=== PATIENT | male | born 1955 | race Caucasian/White ===

== ENCOUNTER → 2019-03-22 11:51 | Outpatient (CLI) | payer OTHER, MEDICAID, SELFPAY ==
[2019-03-22 13:11] LABS: Alanine Aminotransferase 75 IU/L (21-72); Albumin 3.9 g/dL (3.5-5.0); Albumin Globulin Ratio 1.2 (1.0-2.8); Alkaline Phosphatase 98 U/L (38-126); Aspartate Aminotransferase 83 IU/L (17-59); Bilirubin Total 0.8 mg/dL (0.2-1.3); Blood Urea Nitrogen 12 mg/dL (9-20); Calcium 9.2 mg/dL (8.4-10.2); Carbon Dioxide 24 mmol/L (22-32); Chloride 105 mmol/L (98-107); Creatine Kinase 79 U/L (55-170); Estimated Glomerular Filt Rate > 60.0 mL/min (>60); Globulin 3.3 g/dL (1.7-4.1); Glucose 133 mg/dL (80-110); HEMOLYSIS < 15 (0-50); Potassium 4.1 mmol/L (3.4-5.1); Sodium 139 mmol/L (137-145); Total Protein 7.2 g/dL (6.3-8.2)
== END ==
PROVIDERS: PCP Internal Medicine; Visit Provider Internal Medicine
DX: C10.9 Malignant neoplasm of oropharynx, unspecified (principal); G89.4 Chronic pain syndrome; I73.9 Peripheral vascular disease, unspecified
CPT/HCPCS: 36415; 80053; 82550

== ENCOUNTER → 2020-01-24 13:26 | Outpatient (CLI) | payer OTHER, MEDICAID, SELFPAY ==
--- NOTE | 2020-01-24 13:27 | DI.ECHO.S_ITS ---
[facility] +---------+ : : [address] : [place] : : : : [id number] : : : : Phone: [phone]---------+ Echocardiogram Report + + :Name: SHAHNAZ TROTTER Study Date: 01/24/2020 Height: 66 in : :[facility] Weight: 120 lb : : Gender: Male BSA: 1.6 m2 : :: 1955 Age: 64 yrs BP: 118/65 mmHg: :Reason For Study: NSTEMI : : Performed By: Christopher Smith : :Referring: TITO QUINTEROS R : + + Interpretation Summary The left ventricle is normal in size. Left ventricular systolic function is normal without focal wall motion abnormalities. The ejection fraction is estimated to be 60-65%. Diastolic parameters suggest a relaxation abnormality of the left ventricle, consistent with probable normal filling pressures. The right ventricle is normal size. Right ventricular systolic function is at the lower limits of normal. Pulmonary artery pressures cannot be estimated because of the lack of a measurable TR jet velocity. Both atria are normal in size. There is no significant valvular heart disease. The aortic root is normal size. Procedure: A two-dimensional transthoracic echocardiogram with color flow and Doppler was performed. The study quality was technically good. There is no prior echocardiogram noted for this patient. The patient was in normal sinus rhythm during the exam. Left Ventricle: The left ventricle is normal in size. There is normal left ventricular wall thickness. Left ventricular systolic function is normal without focal wall motion abnormalities. The ejection fraction is estimated to be 60-65%. Diastolic parameters suggest a relaxation abnormality of the left ventricle, consistent with probable normal filling pressures. Right Ventricle: The right ventricle is normal size. Right ventricular systolic function is at the lower limits of normal. Atria: Both atria are normal in size. The interatrial septum is intact with no evidence for an atrial septal defect. Mitral Valve: The mitral valve is normal in structure and function. There is no mitral regurgitation noted. Aortic Valve: The aortic valve is trileaflet. The aortic valve opens well. No aortic regurgitation is present. Tricuspid Valve: The tricuspid valve is normal in structure and function. No tricuspid regurgitation. Pulmonary artery pressures cannot be estimated because of the lack of a measurable TR jet velocity. Pulmonic Valve: The pulmonic valve is normal in structure and function. There is trace pulmonic regurgitation. There is no significant valvular heart disease. Great Vessels: The aortic root is normal size. The dimensions of the ascending aorta are normal. The pulmonary artery is normal size. The IVC is of normal diameter and collapses greater than 50% with a sniff. This suggests a low right atrial pressure of 3 mm Hg. Pericardium/ Pleura There is no pericardial effusion. There is no pleural effusion. MMode/2D Measurements & Calculations LVIDd: 4.3 cm LVOT diam: 2.0 cm LVIDs: 2.8 cm Ao root diam: 3.1 cm FS: 35.3 % asc Aorta Diam: 3.2 cm EPSS: 0.67 cm IVSd: 0.84 cm LVPWd: 0.70 cm LV thomas. diameter/BSA (cm/m^2): 2.7 LV sys. diameter/BSA (cm/m^2): 1.7 LA dimension: 2.4 cm RA long axis: 3.9 cm LA A2 area: 12.7 cm2 RA area: 9.3 cm2 LA A4 area: 13.5 cm2 RA vol: 19.0 ml LA length (vol): 5.0 cm RA : 11.8 ml/m2 LA vol: 29.1 ml IVC diam: 1.1 cm LA vol index: 18.1 ml/m2 TAPSE: 1.5 cm Doppler Measurements & Calculations Ao V2 max: 134.6 cm/sec LVOT Max Denny: 90.6 cm/sec Ao V2 mean: 99.2 cm/sec LV V1 max P.3 mmHg Ao max P.2 mmHg LV V1 VTI: 16.6 cm Ao mean P.3 mmHg LEANA(I,D): 2.4 cm2 Ao V2 VTI: 22.3 cm LEANA(V,D): 2.2 cm2 sev ratio: 0.75 LEANA indexed to BSA (cm^2/m^2): 1.5 MV E max denny: 50.3 cm/sec PA V2 max: 81.0 cm/sec MV A max denny: 57.9 cm/sec PA V2 mean: 61.5 cm/sec MV E/A: 0.87 PA mean P.6 mmHg Med Peak E' Denny: 3.8 cm/sec PA pr(Accel): 22.5 mmHg E/E' med: 13.3 Lat Peak E' Denny: 6.0 cm/sec E/E' lat: 8.4 E/e' average: 10.8 MV dec time: 0.26 sec SV(LVOT): 53.7 ml Reading Physician:06:03 PM
== END ==
PROVIDERS: PCP Internal Medicine; Referring Provider Internal Medicine; Visit Provider Internal Medicine
DX: I21.4 Non-ST elevation (NSTEMI) myocardial infarction (principal); I73.9 Peripheral vascular disease, unspecified
CPT/HCPCS: 93306

== ENCOUNTER → 2020-01-27 13:45 | Outpatient (CLI) | payer OTHER, MEDICAID, SELFPAY ==
[2020-01-27 14:33] LABS: Add Manual Diff / Slide Review NO; Basophils Absolute Auto 0 /uL (0-100); Basophils Percent Auto 0.8 % (0-2); Eosinophils Absolute Auto 100 /uL (0-450); Eosinophils Percent Auto 3.9 % (2-4); Hematocrit 41.3 % (41-53); Hemoglobin 13.5 g/dL (13.5-17.5); Lymphocytes Absolute Auto 1600 /uL (1100-4500); Lymphocytes Percent Auto 45.6 % (25-40); Mean Corpuscular HGB Conc 32.8 % (30-36); Mean Corpuscular Hemoglobin 32.2 PG (26-34); Mean Corpuscular Volume 98.4 fL (80-100); Monocytes Absolute Auto 400 /uL (0-900); Monocytes Percent Auto 11.2 % (3-14); Neutrophils Absolute Auto 1400 /uL (1500-7000); Neutrophils Percent Auto 38.5 % (50-75); Platelet Count 102 X10^3/uL (150-400); Red Cell Distribution Width 16.4 % (11.6-14.8); White Blood Cell Count 3.5 X10^3/uL (4.5-11.0)
[2020-01-27 14:48] LABS: Erythrocyte Sedimentation Rate 4 MM/HR (0-15)
[2020-01-27 15:15] LABS: Alanine Aminotransferase 49 IU/L (<50); Albumin 3.5 g/dL (3.5-5.0); Albumin Globulin Ratio 1.1 (1.0-2.8); Alkaline Phosphatase 133 U/L (38-126); Aspartate Aminotransferase 82 IU/L (17-59); BUN Creatinine Ratio 18.2 (6-22); Bilirubin Total 0.5 mg/dL (0.2-1.3); Blood Urea Nitrogen 14 mg/dL (9-20); C-Reactive Protein Quant 0.9 mg/dL (<1.0); Calcium 8.8 mg/dL (8.4-10.2); Carbon Dioxide 25 mmol/L (22-32); Chloride 106 mmol/L (98-107); Estimated Glomerular Filt Rate > 60.0 mL/min (>60); Globulin 3.2 g/dL (1.7-4.1); Glucose 91 mg/dL (80-110); HEMOLYSIS < 15 (0-50); Potassium 4.4 mmol/L (3.4-5.1); Sodium 137 mmol/L (137-145); Total Protein 6.7 g/dL (6.3-8.2)
[2020-01-27 15:23] LABS: Free T4, Direct Thyroxine 2.46 ng/dL (0.78-2.19)
[2020-01-27 15:37] LABS: Thyroid Stimulating Hormone 2.13 uIU/mL (0.47-4.68)
== END ==
PROVIDERS: PCP Internal Medicine; Referring Provider Internal Medicine; Visit Provider Internal Medicine
DX: B18.2 Chronic viral hepatitis C (principal); C10.9 Malignant neoplasm of oropharynx, unspecified; D64.9 Anemia, unspecified; G89.4 Chronic pain syndrome; I73.9 Peripheral vascular disease, unspecified
CPT/HCPCS: 36415; 80053; 84439; 84443; 85025; 85651; 86140

== ENCOUNTER 2020-12-22 12:59 | Observation (INO) | payer OTHER, MEDICAID, SELFPAY ==
[2020-12-22] VITALS (55 sets, daily range): BP systolic 105–196; BP diastolic 59–123; PULSE 49–75; RESP 13–46; TEMP 36.3–37; O2SAT 86–100; BMI 17.9
[2020-12-22] MEDS: SODIUM CHLORIDE 0.9% 1,000 ML 1000 ML IV (13:10)
--- NOTE | 2020-12-22 13:12 | ED.AMS ---
HPI - Altered Mental Status General Chief Complaint: Unresponsive Stated Complaint: unresponsive Time Seen by Provider: 12/22/20 13:10 Source: EMS and other ([place].) Mode of arrival: EMS Limitations: altered mental status History of Present Illness HPI narrative: This is a 65-year-old male who comes to the emergency department with decreased level of responsiveness. EMS was contacted by the wrist for welfare check as patient was sitting in his car. When EMS arrived he was only responsive to aggressive sternal rub. Patient did receive 0.2 of Narcan intranasally which did improve his mentation somewhat. Initial pressure was in the 60s, patient's heart rate was also low. Patient did have some improvement in his pressure was in the 80s but time he arrived here in the department. Patient is able to relate his name although he is quite slurred, he asked for his daughter. Patient is not able to give much more information at this time. Reported history of some kind of lymphoma or cancer, that he is on multiple narcotics for pain management as well as COPD. Throughout the course of patient's stay he does not endorse any attempt to harm himself. He cannot answer his code status. Related Data Home Medications Medication Instructions Recorded Confirmed nitroglycerin 0.4 mg sublingual 0.4 mg SL Q5M PRN 11/13/17 12/07/20 tablet Previous Rx's Medication Instructions Recorded Disabled Parking #1 each 01/26/18 amitriptyline 25 mg tablet See Rx Instructions .ROUTE 06/19/20 .COMPLEX #90 tablet fluticasone propionate 220 2 puff INHALATION BID #12 gram 06/19/20 mcg/actuation HFA aerosol inhaler (Flovent HFA) ofloxacin 0.3 % ear drops 5 drp EAR-RIGHT BID #5 ml 09/08/20 albuterol sulfate 90 mcg/actuation 2 puff INHALATION QID #18 gram 11/03/20 aerosol inhaler (Ventolin HFA) atorvastatin 40 mg tablet 40 mg PO DAILY #90 tab 11/03/20 clopidogrel 75 mg tablet 75 mg PO DAILY #90 tab 11/03/20 cyclobenzaprine 10 mg tablet 10 mg PO TID PRN #90 tab 11/03/20 diphenhydramine HCl 50 mg capsule 50 mg PO Q6HP PRN #90 cap 11/03/20 docusate sodium 100 mg capsule 100 mg PO BID #180 cap 11/03/20 epinephrine 0.3 mg/0.3 mL 0.3 mg IM .COMPLEX #2 each 11/03/20 injection, auto-injector (EpiPen 2-Kristian) famotidine 40 mg tablet 40 mg PO DAILY #90 tab 11/03/20 levothyroxine 100 mcg tablet 100 mcg PO DAILY #90 tab 11/03/20 lidocaine 5 % topical ointment See Rx Instructions TOPICAL TID 11/03/20 PRN #120 gram mecobalamin (vitamin B12) 1,000 1,000 mcg PO DAILY #90 tab 11/03/20 mcg chewable tablet ondansetron 8 mg disintegrating See Rx Instructions .ROUTE 11/03/20 tablet .COMPLEX #24 tab tiotropium bromide 18 mcg capsule See Rx Instructions .ROUTE 11/03/20 with inhalation device (Spiriva .COMPLEX #30 capsule with HandiHaler) triamcinolone acetonide 0.1 % 1 applic TOP QID #80 gram 11/03/20 topical cream lorazepam 1 mg tablet (Ativan) 1 mg PO Q4HP PRN #60 tab 12/02/20 morphine 30 mg immediate release 30 - 60 mg PO Q4H PRN #180 tab 12/02/20 tablet morphine 30 mg tablet,extended 30 mg PO TID #90 tab 12/02/20 release oxycodone-acetaminophen 7.5 mg-325 1 tab PO Q4HP PRN #180 tab 12/02/20 mg tablet Allergies Allergy/AdvReac Type Severity Reaction Status Date / Time codeine Allergy Mild Verified 12/22/20 14:27 levofloxacin Allergy Mild Verified 12/22/20 14:27 aspirin AdvReac Mild Verified 12/22/20 14:27 Review of Systems Review of Systems ROS Unobtainable: Unobtainable due to mental status/LOC Patient History Medical History Anemia (02/09/11) Aortoiliac obstruction Cervical spine disease Chronic hepatitis C virus infection (02/09/11) Chronic obstructive pulmonary disease (02/09/11) Dorsalgia (08/14/03) History of adenomatous polyp of colon (02/09/11) Neck pain (02/09/11) Paroxysmal atrial fibrillation (~12/2019) Recurrent major depressive disorder, in full remission (02/09/11) 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) Uncomplicated opioid dependence Vascular claudication Surgical History History of knee replacement S/P vascular bypass (~12/2017) Status post tonsillectomy and adenoidectomy Family History Father Family hx of lung cancer Social History marital status: unmarried,single number of children: 3 household members: none lives independently: Yes caregiver/support person: Yes (Sometimes.) housing: other (Trailer) pets and animals: Yes education level: other (GED) occupational status: disabled current occupational exposures/hazards: No 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 Patient is responsive to verbal stimuli but very confused. His speech is slurred. Patient asks for his daughter. He can tell me his name, he does not know what facility he is at or how he arrived. Patient appears agitated. HEAD: No evidence of trauma, no raccoon/Paiz sign. NECK: Nontender, trachea midline EYES: PERRLA, EOMI ENT: External inspection normal, trachea is midline, TM's are normal no hemotypanum, Nares are clear, no septal hematoma, no dental or oral injury, airway is normal and with normal occlusion, No bony tenderness RESP: Chest is nontender and has symmetric movement, no ecchymosis, breath sounds are normal no crackles, wheezes or rales CVS: Heart sounds are normal, no murmur noted, No JVD. ABG/GI: Nontender, soft, normal bowel sounds, no distention, no organomegaly, pelvic rock is negative NEURO: Neuro is grossly intact, sensation and motor is normal all 4 extremities moving, cranial nerves II through XII are intact, GCS is 10 initially, improved to 11 shortly after arrival. PSYCH: Normal mood and affect SKIN: Intact, warm and dry, no crepitus and without decubitus BACK: No CVA tenderness, no vertebral tenderness, no step-off's, no crepitus EXT: Atraumatic, hips are nontender, no pedal edema, normal color and temperature, normal range of motion of extremities with normal tendon exam, 2+ pulses in all four extremities Initial Vital Signs Initial Vital Signs: Vital Signs Temperature 98.6 F 12/22/20 13:00 Pulse Rate 75 12/22/20 13:00 Respiratory Rate 18 12/22/20 13:00 Pulse Oximetry 94 12/22/20 13:00 Scores GCS [place] coma scale eye opening: To pressure Joshua coma scale verbal response: Words Joshua coma scale motor response: Localising [place] coma scale total score: 10 Course Orders Ordered: ED Orders 12/22/20 12:55 Acetaminophen Stat Complete Blood Count AUTO DIFF Stat Comprehensive Metabolic Panel Stat Ethanol (ETOH) Stat Lactate (Lactic Acid) Stat Procalcitonin Stat Salicylate Stat Thyroid Stimulating Hormone Stat Troponin & CK Cardiac Panel Stat 12/22/20 13:14 Blood Culture Stat 12/22/20 13:15 CT head/brain wo con Stat XR chest 1V Stat 12/22/20 13:40 Ammonia (NH3) Stat Partial Thromboplastin Time Stat Prothrombin Time INR Stat 12/22/20 13:43 Arterial Blood Gas Stat 12/22/20 14:20 COVID19 - ADMIT (LABOR RELATIONS OR PERSONNEL NEGOTIATOR swab/PCR) Stat 12/22/20 14:25 Urinalysis and Microscopic Stat Urine Drug Screen, Rapid Stat Acetaminophen (Acetaminophen 325 Mg Tablet) 650 mg PO Q6HR PRN PRN Reason: Fever/Mild Pain (1-3) Albuterol (Albuterol 2.5 Mg/3 Ml Neb (Adult)) 2.5 mg INH [id number] PRN PRN Reason: Shortness Of Breath Atorvastatin Calcium (Atorvastatin 20 Mg Tablet) 40 mg PO DAILY DANIELLE Budesonide (Budesonide 0.5 Mg/2 Ml Neb) 0.5 mg INH RTBID DANIELLE Last Admin: 12/22/20 19:23 Dose: 0.5 mg Documented by: DAX Clopidogrel Bisulfate (Clopidogrel 75 Mg Tablet) 75 mg PO DAILY [facility] Docusate Sodium (Docusate 100 Mg Capsule) 100 mg PO BID [facility] Famotidine (Famotidine 20 Mg Tablet) 40 mg PO DAILY [facility] Dextrose/Sodium Chloride (Dextrose 5%-0.9% Ns) 1,000 mls @ 125 mls/hr IV CONT [facility] Ibuprofen (Ibuprofen 600 Mg Tablet) 600 mg PO Q6HR PRN PRN Reason: Fever/Mild Pain (1-3) Levothyroxine Sodium (Levothyroxine 100 Mcg Tablet) 100 mcg PO DAILY@0600 [facility] Naloxone HCl (Naloxone 0.4 Mg/Ml Vial) 0.2 mg IV Q2MIN PRN PRN Reason: Opiate Reversal Mecobalamin (Vitamin B12) 1,000 Mcg Tablet,Chewable 1,000 mcg PO DAILY DANIELLE Discontinued Medications Enoxaparin Sodium (Enoxaparin 40 Mg/0.4 Ml Syringe) 40 mg SUBCUT DAILY [facility] Sodium Chloride (Normal Saline 0.9%) 1,000 mls @ 1,000 mls/hr IV BOLUS ONE Stop: 12/22/20 14:13 Last Infusion: 12/22/20 14:25 Dose: 0 mls/hr Documented by: Infusion: 12/22/20 13:26 Dose: 1,000 mls/hr Documented by: Admin: 12/22/20 13:10 Dose: 1,000 mls/hr Documented by: VIRAJ Nicotine (Nicotine 7 Mg Patch) 7 mg TOP NOW ONE Stop: 12/22/20 20:15 Consultations Consultation #1: Dr. [place], discussed patient is somewhat unresponsive. He is hypotensive initially concern for hypoxic. Patient may have had accidental narcotic overdose but wide differential is being considered. Head CT was not available but as patient may require advanced resuscitation and unable to give me a POLST status, and patient refers to a daughter who is not present in not our patient demographics or contacts. Dr. [place] states that they have had conversation about advanced directives and patient has waffle back and forth between full code and no code so at this time he would consider him full. He states that there is no family that he is aware of in the patient has not had any family involved for quite some time. This seems consistent that the person to notify in the chart is a friend. Consultation #2: Re-contacted Dr. [place], he accepts for observation. Patient's mentation has been improving although he does not appear to be at baseline at this time. Head CT was negative, labs do not show major abnormalities. Patient's ABG shows some hypercapnia and PaO2 was 78 on 2 L this would be consistent with possible narcotic overdose. Patient was not given any additional Narcan as he has been maintaining his airway or worsening end-tidal CO2. Plan for observation on the floor as we can maintain patient's evaluation with end-tidal CO2 which can give some early indication if there is issues overnight. Vital Signs Vital signs: Vital Signs - 8 hr 12/22/20 13:21 12/22/20 13:29 12/22/20 13:30 Pulse Rate 55 L 57 L Respiratory Rate 22 29 H Blood Pressure 167/80 H 159/100 H Pulse Oximetry 86 L 90 L 12/22/20 13:32 12/22/20 13:38 12/22/20 13:40 Pulse Rate 61 55 L 60 Respiratory Rate 24 30 H 22 Blood Pressure 196/94 H 184/97 H Pulse Oximetry 88 L 98 99 12/22/20 13:42 12/22/20 13:58 12/22/20 14:00 Pulse Rate 53 L 56 L Respiratory Rate 30 H 28 H Blood Pressure 169/123 H 174/72 H Pulse Oximetry 97 97 12/22/20 14:03 12/22/20 14:06 12/22/20 14:10 Pulse Rate 53 L 54 L Respiratory Rate 18 Blood Pressure 159/89 H 156/96 H 163/73 H Pulse Oximetry 98 12/22/20 14:15 12/22/20 14:20 12/22/20 14:25 Pulse Rate 67 56 L Respiratory Rate 17 17 Blood Pressure 157/82 H 189/84 H 161/70 H Pulse Oximetry 95 95 12/22/20 14:30 12/22/20 14:35 12/22/20 14:40 Pulse Rate 55 L 54 L 52 L Respiratory Rate 46 H 28 H 31 H Blood Pressure 134/62 131/68 132/68 Pulse Oximetry 90 L 88 L 99 12/22/20 14:45 12/22/20 14:50 12/22/20 14:55 Pulse Rate 51 L 51 L 51 L Respiratory Rate 30 H 33 H 31 H Blood Pressure 117/61 119/59 L 109/61 Pulse Oximetry 99 99 98 12/22/20 15:00 12/22/20 15:05 12/22/20 15:10 Pulse Rate 50 L 51 L 51 L Respiratory Rate 29 H 32 H 27 H Blood Pressure 108/61 109/65 110/61 Pulse Oximetry 98 98 98 12/22/20 15:15 12/22/20 15:20 12/22/20 15:25 Pulse Rate 51 L 51 L 52 L Respiratory Rate 40 H 31 H 46 H Blood Pressure 111/62 112/67 115/60 Pulse Oximetry 99 98 98 12/22/20 15:30 12/22/20 15:35 12/22/20 15:40 Pulse Rate 50 L 52 L 50 L Respiratory Rate 26 H 30 H 28 H Blood Pressure 117/68 105/64 123/66 Pulse Oximetry 99 97 100 12/22/20 15:45 12/22/20 15:50 12/22/20 15:55 Pulse Rate 50 L 49 L 50 L Respiratory Rate 34 H 36 H 18 Blood Pressure 115/62 123/71 123/71 Pulse Oximetry 99 99 99 12/22/20 16:00 12/22/20 16:05 12/22/20 16:10 Pulse Rate 49 L 59 L 64 Respiratory Rate 13 23 21 Blood Pressure 118/71 127/80 119/76 Pulse Oximetry 99 94 91 12/22/20 16:15 Pulse Rate 53 L Respiratory Rate 21 Blood Pressure 155/74 H Pulse Oximetry 96 MDM - Altered Mental Status Lab Data Result diagrams: 12/22/20 12:55 12/22/20 12:55 Labs: Lab Results 12/22/20 12/22/20 12/22/20 Range/Units 12:55 12:55 12:55 WBC 3.7 L (4.5-11.0) X10^3/uL RBC 4.28 L (4.5-5.9) X10^6/uL Hgb 13.2 L (13.5-17.5) g/dL Hct 39.9 L (41-53) % MCV 93.3 (80-100) fL MCH 30.8 (26-34) PG MCHC 33.0 (30-36) % RDW 15.2 H (11.6-14.8) % Plt Count 77 L (150-400) X10^3/uL Neut % (Auto) 42.8 L (50-75) % Lymph % (Auto) 36.8 (25-40) % [place] % (Auto) 17.0 H (3-14) % Eos % (Auto) 2.9 (2-4) % Baso % (Auto) 0.5 (0-2) % Neut # (Auto) 1600 (3058-1896) /uL Lymph # (Auto) 1400 (1877-7761) /uL [place] # (Auto) 600 (0-900) /uL Eos # (Auto) 100 (0-450) /uL Baso # (Auto) 0 (0-100) /uL PT (10.1-12.7) SECONDS INR (0.9-1.3) APTT (26.4-36.2) SECONDS ABG pH (7.35-7.45) ABG pCO2 (35-45) mmHg ABG pO2 (80-100) mmHg ABG HCO3 (22-26) mmol/L ABG Total CO2 (21-31) mmol/L ABG O2 Saturation (95-100) % ABG Base Excess (-2-2) mmol/L FiO2 Sodium 135 L (137-145) mmol/L Potassium 4.6 (3.4-5.1) mmol/L Chloride 104 (98-107) mmol/L Carbon Dioxide 29 (22-32) mmol/L BUN 18 (9-20) mg/dL Creatinine 0.96 (0.66-1.25) mg/dL Estimated GFR > 60.0 (>60) mL/min BUN/Creatinine Ratio 18.8 (6-22) Glucose 96 (80-110) mg/dL Lactate 0.8 (0.7-2.1) mmol/L Calcium 8.8 (8.4-10.2) mg/dL Total Bilirubin 0.7 (0.2-1.3) mg/dL AST 57 (17-59) IU/L ALT 36 (<50) IU/L Alkaline Phosphatase 102 (38-126) U/L Ammonia (9-30) umol/L Total Creatine Kinase 106 (55-170) U/L CK-MB (CK-2) 4.03 H (<2.37) ng/mL CK-MB (CK-2) Rel Index 3.8 (1.5-5.0) % Troponin I < 0.012 (0.01-0.034) ng/mL Total Protein 6.7 (6.3-8.2) g/dL Albumin 3.4 L (3.5-5.0) g/dL Globulin 3.3 (1.7-4.1) g/dL Albumin/Globulin Ratio 1.0 (1.0-2.8) Procalcitonin 0.07 (<0.5) ng/mL TSH (0.47-4.68) uIU/mL Urine Color Urine Appearance Urine pH (4.5-8.0) Ur Specific [place] (1.000-1.035) Urine Protein (Negative) Urine Glucose (UA) (Negative) g/dL Urine Ketones (NEGATIVE) Urine Occult Blood (Negative) Urine Nitrate (Negative) Urine Bilirubin (NEGATIVE) Urine Urobilinogen (0.2) E.U./dL Ur Leukocyte Esterase (NEGATIVE) Urine RBC (0-5/HPF) Urine WBC (0-5/HPF) Urine Bacteria (None) Ur Culture Indicated? Salicylates < 1.0 (<20) mg/dL U Opiates 300ng/mL cut (Negative) Ur Oxycodone Screen (Negative) Urine Methadone Screen (Negative) Acetaminophen < 10 L (10-30) ug/mL Ur Barbiturates Screen (Negative) U Tricyclic Antidepress (Negative) Ur Phencyclidine Scrn (Negative) Ur Amphetamines Screen (Negative) U Methamphetamines Scrn (Negative) Ur MDMA Scrn (Ecstasy) (Negative) U Benzodiazepines Scrn (Negative) Urine Cocaine Screen (Negative) U Marijuana (THC) Screen (Negative) Ethyl Alcohol < 10 ( - 10) mg/dL SARS-CoV-2 (PCR) (Negative) 12/22/20 12/22/20 12/22/20 Range/Units 12:55 13:40 13:40 WBC (4.5-11.0) X10^3/uL RBC (4.5-5.9) X10^6/uL Hgb (13.5-17.5) g/dL Hct (41-53) % MCV (80-100) fL MCH (26-34) PG MCHC (30-36) % RDW (11.6-14.8) % Plt Count (150-400) X10^3/uL Neut % (Auto) (50-75) % Lymph % (Auto) (25-40) % [place] % (Auto) (3-14) % Eos % (Auto) (2-4) % Baso % (Auto) (0-2) % Neut # (Auto) (8447-0763) /uL Lymph # (Auto) (8458-8188) /uL [place] # (Auto) (0-900) /uL Eos # (Auto) (0-450) /uL Baso # (Auto) (0-100) /uL PT 12.8 H (10.1-12.7) SECONDS INR 1.2 (0.9-1.3) APTT 21 L (26.4-36.2) SECONDS ABG pH (7.35-7.45) ABG pCO2 (35-45) mmHg ABG pO2 (80-100) mmHg ABG HCO3 (22-26) mmol/L ABG Total CO2 (21-31) mmol/L ABG O2 Saturation (95-100) % ABG Base Excess (-2-2) mmol/L FiO2 Sodium (137-145) mmol/L Potassium (3.4-5.1) mmol/L Chloride (98-107) mmol/L Carbon Dioxide (22-32) mmol/L BUN (9-20) mg/dL Creatinine (0.66-1.25) mg/dL Estimated GFR (>60) mL/min BUN/Creatinine Ratio (6-22) Glucose (80-110) mg/dL Lactate (0.7-2.1) mmol/L Calcium (8.4-10.2) mg/dL Total Bilirubin (0.2-1.3) mg/dL AST (17-59) IU/L ALT (<50) IU/L Alkaline Phosphatase (38-126) U/L Ammonia < 9 L (9-30) umol/L Total Creatine Kinase (55-170) U/L CK-MB (CK-2) (<2.37) ng/mL CK-MB (CK-2) Rel Index (1.5-5.0) % Troponin I (0.01-0.034) ng/mL Total Protein (6.3-8.2) g/dL Albumin (3.5-5.0) g/dL Globulin (1.7-4.1) g/dL Albumin/Globulin Ratio (1.0-2.8) Procalcitonin (<0.5) ng/mL TSH 0.723 (0.47-4.68) uIU/mL Urine Color Urine Appearance Urine pH (4.5-8.0) Ur Specific [place] (1.000-1.035) Urine Protein (Negative) Urine Glucose (UA) (Negative) g/dL Urine Ketones (NEGATIVE) Urine Occult Blood (Negative) Urine Nitrate (Negative) Urine Bilirubin (NEGATIVE) Urine Urobilinogen (0.2) E.U./dL Ur Leukocyte Esterase (NEGATIVE) Urine RBC (0-5/HPF) Urine WBC (0-5/HPF) Urine Bacteria (None) Ur Culture Indicated? Salicylates (<20) mg/dL U Opiates 300ng/mL cut (Negative) Ur Oxycodone Screen (Negative) Urine Methadone Screen (Negative) Acetaminophen (10-30) ug/mL Ur Barbiturates Screen (Negative) U Tricyclic Antidepress (Negative) Ur Phencyclidine Scrn (Negative) Ur Amphetamines Screen (Negative) U Methamphetamines Scrn (Negative) Ur MDMA Scrn (Ecstasy) (Negative) U Benzodiazepines Scrn (Negative) Urine Cocaine Screen (Negative) U Marijuana (THC) Screen (Negative) Ethyl Alcohol ( - 10) mg/dL SARS-CoV-2 (PCR) (Negative) 12/22/20 12/22/20 12/22/20 Range/Units 13:43 14:20 14:25 WBC (4.5-11.0) X10^3/uL RBC (4.5-5.9) X10^6/uL Hgb (13.5-17.5) g/dL Hct (41-53) % MCV (80-100) fL MCH (26-34) PG MCHC (30-36) % RDW (11.6-14.8) % Plt Count (150-400) X10^3/uL Neut % (Auto) (50-75) % Lymph % (Auto) (25-40) % [place] % (Auto) (3-14) % Eos % (Auto) (2-4) % Baso % (Auto) (0-2) % Neut # (Auto) (4059-2095) /uL Lymph # (Auto) (2691-3662) /uL [place] # (Auto) (0-900) /uL Eos # (Auto) (0-450) /uL Baso # (Auto) (0-100) /uL PT (10.1-12.7) SECONDS INR (0.9-1.3) APTT (26.4-36.2) SECONDS ABG pH 7.34 L (7.35-7.45) ABG pCO2 50.1 H (35-45) mmHg ABG pO2 78 L (80-100) mmHg ABG HCO3 27 H (22-26) mmol/L ABG Total CO2 28 (21-31) mmol/L ABG O2 Saturation 94 L (95-100) % ABG Base Excess 1.0 (-2-2) mmol/L FiO2 28 Sodium (137-145) mmol/L Potassium (3.4-5.1) mmol/L Chloride (98-107) mmol/L Carbon Dioxide (22-32) mmol/L BUN (9-20) mg/dL Creatinine (0.66-1.25) mg/dL Estimated GFR (>60) mL/min BUN/Creatinine Ratio (6-22) Glucose (80-110) mg/dL Lactate (0.7-2.1) mmol/L Calcium (8.4-10.2) mg/dL Total Bilirubin (0.2-1.3) mg/dL AST (17-59) IU/L ALT (<50) IU/L Alkaline Phosphatase (38-126) U/L Ammonia (9-30) umol/L Total Creatine Kinase (55-170) U/L CK-MB (CK-2) (<2.37) ng/mL CK-MB (CK-2) Rel Index (1.5-5.0) % Troponin I (0.01-0.034) ng/mL Total Protein (6.3-8.2) g/dL Albumin (3.5-5.0) g/dL Globulin (1.7-4.1) g/dL Albumin/Globulin Ratio (1.0-2.8) Procalcitonin (<0.5) ng/mL TSH (0.47-4.68) uIU/mL Urine Color Yellow Urine Appearance Clear Urine pH 6.0 (4.5-8.0) Ur Specific [place] <=1.005 (1.000-1.035) Urine Protein Negative (Negative) Urine Glucose (UA) Negative (Negative) g/dL Urine Ketones Negative (NEGATIVE) Urine Occult Blood 1+ H (Negative) Urine Nitrate Negative (Negative) Urine Bilirubin Negative (NEGATIVE) Urine Urobilinogen 0.2 (0.2) E.U./dL Ur Leukocyte Esterase Negative (NEGATIVE) Urine RBC 0-1/hpf (0-5/HPF) Urine WBC None seen (0-5/HPF) Urine Bacteria None seen (None) Ur Culture Indicated? Cult not indicated Salicylates (<20) mg/dL U Opiates 300ng/mL cut (Negative) Ur Oxycodone Screen (Negative) Urine Methadone Screen (Negative) Acetaminophen (10-30) ug/mL Ur Barbiturates Screen (Negative) U Tricyclic Antidepress (Negative) Ur Phencyclidine Scrn (Negative) Ur Amphetamines Screen (Negative) U Methamphetamines Scrn (Negative) Ur MDMA Scrn (Ecstasy) (Negative) U Benzodiazepines Scrn (Negative) Urine Cocaine Screen (Negative) U Marijuana (THC) Screen (Negative) Ethyl Alcohol ( - 10) mg/dL SARS-CoV-2 (PCR) Negative (Negative) 12/22/20 Range/Units 14:25 WBC (4.5-11.0) X10^3/uL RBC (4.5-5.9) X10^6/uL Hgb (13.5-17.5) g/dL Hct (41-53) % MCV (80-100) fL MCH (26-34) PG MCHC (30-36) % RDW (11.6-14.8) % Plt Count (150-400) X10^3/uL Neut % (Auto) (50-75) % Lymph % (Auto) (25-40) % [place] % (Auto) (3-14) % Eos % (Auto) (2-4) % Baso % (Auto) (0-2) % Neut # (Auto) (2686-7892) /uL Lymph # (Auto) (1719-5028) /uL [place] # (Auto) (0-900) /uL Eos # (Auto) (0-450) /uL Baso # (Auto) (0-100) /uL PT (10.1-12.7) SECONDS INR (0.9-1.3) APTT (26.4-36.2) SECONDS ABG pH (7.35-7.45) ABG pCO2 (35-45) mmHg ABG pO2 (80-100) mmHg ABG HCO3 (22-26) mmol/L ABG Total CO2 (21-31) mmol/L ABG O2 Saturation (95-100) % ABG Base Excess (-2-2) mmol/L FiO2 Sodium (137-145) mmol/L Potassium (3.4-5.1) mmol/L Chloride (98-107) mmol/L Carbon Dioxide (22-32) mmol/L BUN (9-20) mg/dL Creatinine (0.66-1.25) mg/dL Estimated GFR (>60) mL/min BUN/Creatinine Ratio (6-22) Glucose (80-110) mg/dL Lactate (0.7-2.1) mmol/L Calcium (8.4-10.2) mg/dL Total Bilirubin (0.2-1.3) mg/dL AST (17-59) IU/L ALT (<50) IU/L Alkaline Phosphatase (38-126) U/L Ammonia (9-30) umol/L Total Creatine Kinase (55-170) U/L CK-MB (CK-2) (<2.37) ng/mL CK-MB (CK-2) Rel Index (1.5-5.0) % Troponin I (0.01-0.034) ng/mL Total Protein (6.3-8.2) g/dL Albumin (3.5-5.0) g/dL Globulin (1.7-4.1) g/dL Albumin/Globulin Ratio (1.0-2.8) Procalcitonin (<0.5) ng/mL TSH (0.47-4.68) uIU/mL Urine Color Urine Appearance Urine pH (4.5-8.0) Ur Specific [place] (1.000-1.035) Urine Protein (Negative) Urine Glucose (UA) (Negative) g/dL Urine Ketones (NEGATIVE) Urine Occult Blood (Negative) Urine Nitrate (Negative) Urine Bilirubin (NEGATIVE) Urine Urobilinogen (0.2) E.U./dL Ur Leukocyte Esterase (NEGATIVE) Urine RBC (0-5/HPF) Urine WBC (0-5/HPF) Urine Bacteria (None) Ur Culture Indicated? Salicylates (<20) mg/dL U Opiates 300ng/mL cut Positive H (Negative) Ur Oxycodone Screen Negative (Negative) Urine Methadone Screen Negative (Negative) Acetaminophen (10-30) ug/mL Ur Barbiturates Screen Negative (Negative) U Tricyclic Antidepress Positive H (Negative) Ur Phencyclidine Scrn Negative (Negative) Ur Amphetamines Screen Negative (Negative) U Methamphetamines Scrn Negative (Negative) Ur MDMA Scrn (Ecstasy) Negative (Negative) U Benzodiazepines Scrn Positive H (Negative) Urine Cocaine Screen Negative (Negative) U Marijuana (THC) Screen Positive H (Negative) Ethyl Alcohol ( - 10) mg/dL SARS-CoV-2 (PCR) (Negative) Imaging Data CT scan - head: Radiologist's Impression: [address] [id number] Scan ReportSigned Patient: Moise Lara [facility]#: [id number]: 8Acct:[id number]/Sex: 65 / MDate of Service: 12/22/20Loc: EDAccession Number: [id number] Procedure: CT head/brain wo con Ordering Provider: Kendal Rivera D.O. PROCEDURE: CT HEAD/BRAIN WO CON INDICATIONS: altered mental status TECHNIQUE: Noncontrast 4.5 mm thick angled axial sections acquired from the foramen magnum to the vertex, with coronal and sagittal reformats. For radiation dose reduction, the following was used: automated exposure control, adjustment of mA and/or kV according to patient size. COMPARISON: MR, STROKE PROTOCOL, 11/12/2012, 11:24. [facility], CT, HEAD WITHOUT CONTRAST, 11/11/2012, 21:56. FINDINGS: Image quality: Excellent. CSF spaces: Basal cisterns are patent. No extra-axial fluid collections. The ventricles are symmetric in size and shape. Brain: No intracranial bleeds or masses. There is cerebral volume loss for age, with resultant ventricular and sulcal prominence. There are periventricular and deep white matter chronic small vessel ischemic changes. There is intracranial internal carotid artery atherosclerosis. Skull and face: Chronic appearing bilateral nasal bone fractures. Calvarium appears intact, without suspicious lesions. Sinuses: Visualized sinuses and mastoids are clear. IMPRESSION: No acute intracranial disease process. Dictated by: Arlin Dumas MD, PhD on 12/22/2020 at 14:01 Approved by: Arlin Dumas MD, PhD on 12/22/2020 at 14:03 Chest x-ray: Radiologist's Impression: [address] [id number] ReportSigned Patient: Moise Lara [facility]#: [id number]: 1955cct:[id number]/Sex: 65 / MDate of Service: 12/22/20Loc: EDAccession Number: [id number] Procedure: XR chest 1V Ordering Provider: Kendal Rivera D.O. PROCEDURE: XR CHEST 1V INDICATIONS: altered mental status TECHNIQUE: One view of the chest was acquired. COMPARISON: [facility], CR, CHEST 1 VIEW, 11/11/2012, 18:43. [facility], CT, CT CHEST WITH CONTRAST, 01/01/2018, 11:07. FINDINGS: Surgical changes and devices: None. Lungs and pleura: Lungs are clear. No pleural effusions or pneumothorax. Mediastinum: Mediastinal contours appear normal. Heart size is normal. Bones and chest wall: No suspicious bony lesions. Overlying soft tissues appear unremarkable. Remote rib fractures. IMPRESSION: No acute finding. Dictated by: Flakito Philippe M.D. on 12/22/2020 at 14:10 Approved by: Flakito Philippe M.D. on 12/22/2020 at 14:11 ECG Data Interpretation: Normal sinus rhythm rate of 60 9p are 160 QRS of 90 and QTC of 462. No acute ST changes appreciated. Possible left atrial enlargement, left axis deviation. Patient has prior EKGS for comparison. [facility] Narrative Medical decision making narrative: Male brought for altered mental status found in his vehicle. Patient has multiple medical issues but is on significant narcotic and benzodiazepine medications. His medical status and history was clarified with his primary care team who was quite helpful. Patient did respond to Narcan he was only given a very small dose but this did have some improvement. He was had a slightly hypercapnic respiratory acidosis. PaO2 was 78 on 2 L patient maintained his oxygen saturation over time with this. His mentation was slowly improving here in the department. Head CT, chest x-ray labs an EKG did not show any acute causes and I suspect that he has a bit too much narcotics on board. Patient was seen by Dr. Tijerina here in the department who accepts for observation. Patient has been stable here in the department so we both felt it would be appropriate to place him on the floor. Discharge Plan Departure Patient Disposition: Admitted as Observation Clinical Impression: Altered mental status Admit Date/Time: 12/22/20 16:15 Admit Provider: Shalom Tijreina
--- NOTE | 2020-12-22 13:15 | DI.RAD.S_ITS ---
PROCEDURE: XR CHEST 1V INDICATIONS: altered mental status TECHNIQUE: One view of the chest was acquired. COMPARISON: [facility], CR, CHEST 1 VIEW, 11/11/2012, 18:43. [facility], CT, CT CHEST WITH CONTRAST, 01/01/2018, 11:07. FINDINGS: Surgical changes and devices: None. Lungs and pleura: Lungs are clear. No pleural effusions or pneumothorax. Mediastinum: Mediastinal contours appear normal. Heart size is normal. Bones and chest wall: No suspicious bony lesions. Overlying soft tissues appear unremarkable. Remote rib fractures. IMPRESSION: No acute finding. Dictated by: Flakito Philippe M.D. on 12/22/2020 at 14:10 Approved by: Flakito Philippe M.D. on 12/22/2020 at 14:11
--- NOTE | 2020-12-22 13:15 | DI.CT.S_ITS ---
PROCEDURE: CT HEAD/BRAIN WO CON INDICATIONS: altered mental status TECHNIQUE: Noncontrast 4.5 mm thick angled axial sections acquired from the foramen magnum to the vertex, with coronal and sagittal reformats. For radiation dose reduction, the following was used: automated exposure control, adjustment of mA and/or kV according to patient size. COMPARISON: MR, STROKE PROTOCOL, 11/12/2012, 11:24. [facility], CT, HEAD WITHOUT CONTRAST, 11/11/2012, 21:56. FINDINGS: Image quality: Excellent. CSF spaces: Basal cisterns are patent. No extra-axial fluid collections. The ventricles are symmetric in size and shape. Brain: No intracranial bleeds or masses. There is cerebral volume loss for age, with resultant ventricular and sulcal prominence. There are periventricular and deep white matter chronic small vessel ischemic changes. There is intracranial internal carotid artery atherosclerosis. Skull and face: Chronic appearing bilateral nasal bone fractures. Calvarium appears intact, without suspicious lesions. Sinuses: Visualized sinuses and mastoids are clear. IMPRESSION: No acute intracranial disease process. Dictated by: Arlin Dumas MD, PhD on 12/22/2020 at 14:01 Approved by: Arlin Dumas MD, PhD on 12/22/2020 at 14:03
[2020-12-22 13:23] LABS: Add Manual Diff / Slide Review NO; Basophils Absolute Auto 0 /uL (0-100); Basophils Percent Auto 0.5 % (0-2); Eosinophils Absolute Auto 100 /uL (0-450); Eosinophils Percent Auto 2.9 % (2-4); Hematocrit 39.9 % (41-53); Hemoglobin 13.2 g/dL (13.5-17.5); Lymphocytes Absolute Auto 1400 /uL (1100-4500); Lymphocytes Percent Auto 36.8 % (25-40); Mean Corpuscular Hemoglobin 30.8 PG (26-34); Mean Corpuscular Volume 93.3 fL (80-100); Monocytes Absolute Auto 600 /uL (0-900); Neutrophils Absolute Auto 1600 /uL (1500-7000); Neutrophils Percent Auto 42.8 % (50-75); Platelet Count 77 X10^3/uL (150-400); Red Blood Cell Count 4.28 X10^6/uL (4.5-5.9); Red Cell Distribution Width 15.2 % (11.6-14.8); White Blood Cell Count 3.7 X10^3/uL (4.5-11.0)
[2020-12-22 13:30] LABS: Acetaminophen < 10 ug/mL (10-30); Alanine Aminotransferase 36 IU/L (<50); Albumin 3.4 g/dL (3.5-5.0); Alkaline Phosphatase 102 U/L (38-126); Aspartate Aminotransferase 57 IU/L (17-59); BUN Creatinine Ratio 18.8 (6-22); Bilirubin Total 0.7 mg/dL (0.2-1.3); Blood Urea Nitrogen 18 mg/dL (9-20); Calcium 8.8 mg/dL (8.4-10.2); Carbon Dioxide 29 mmol/L (22-32); Chloride 104 mmol/L (98-107); Creatine Kinase 106 U/L (55-170); Estimated Glomerular Filt Rate > 60.0 mL/min (>60); Ethanol (ETOH) < 10 mg/dL; Globulin 3.3 g/dL (1.7-4.1); Glucose 96 mg/dL (80-110); Potassium 4.6 mmol/L (3.4-5.1); Salicylate < 1.0 mg/dL (<20); Sodium 135 mmol/L (137-145); Total Protein 6.7 g/dL (6.3-8.2)
[2020-12-22 13:41] LABS: Troponin I < 0.012 ng/mL (0.01-0.034)
--- NOTE | 2020-12-22 13:44 | PC.NURSE ---
Pt w/ htn by monitor however unable to palpate pulses and cap refill > 4 in hands. Provider aware.
[2020-12-22 13:45] LABS: CKMB % Relative Index 3.8 % (1.5-5.0); Creatine Kinase MB 4.03 ng/mL (<2.37); HEMOLYSIS 39 (0-50)
[2020-12-22 13:47] LABS: Procalcitonin 0.07 ng/mL (<0.5)
[2020-12-22 13:56] LABS: Fractionated Inspired Oxygen 28; HCO3 ABG 27 mmol/L (22-26); Oxygen Saturation ABG 94 % (95-100); PCO2 ABG 50.1 mmHg (35-45); PO2 ABG 78 mmHg (80-100); TCO2 ABG 28 mmol/L (21-31); pH ABG 7.34 (7.35-7.45)
[2020-12-22 13:57] LABS: INR 1.2 (0.9-1.3); Prothrombin Time 12.8 SECONDS (10.1-12.7)
[2020-12-22 13:59] LABS: PTT Partial Thromboplastin Tim 21 SECONDS (26.4-36.2)
[2020-12-22 14:00] LABS: Ammonia (NH3) < 9 umol/L (9-30)
[2020-12-22 14:19] LABS: Thyroid Stimulating Hormone 0.723 uIU/mL (0.47-4.68)
[2020-12-22 14:35] LABS: Bacteria Urine None Seen; WBC Urine None Seen (0-5/HPF)
[2020-12-22 14:36] LABS: Appearance Urine UA CLEAR; Bilirubin Urine UA NEGATIVE (NEGATIVE); Color Urine UA YELLOW; Glucose Urine UA NEGATIVE (Negative); Ketones Urine UA NEGATIVE (NEGATIVE); Leukocyte Esterase Urine UA NEGATIVE (NEGATIVE); Nitrite Urine UA NEGATIVE (Negative); Occult Blood Urine UA 1+ (Negative); Protein Urine UA NEGATIVE (Negative); Specific Gravity Urine UA <=1.005 (1.000-1.035); Urobilinogen Urine UA 0.2 E.U./dL (0.2)
[2020-12-22 14:40] LABS: UR Morphine/Opiate cutoff 300 Positive (Negative); Ur Creatinine Normal (Normal); Ur Specific Gravity Normal (Normal); Urine Amphetamines Negative (Negative); Urine Barbiturates Negative (Negative); Urine Benzodiazepines Positive (Negative); Urine Cocaine Negative (Negative); Urine MDMA Negative (Negative); Urine Methadone Negative (Negative); Urine Methamphetamines Negative (Negative); Urine Oxycodone Negative (Negative); Urine Phencyclidine Negative (Negative); Urine Tetrahydrocannabinol Positive (Negative); Urine Tricyclic Antidepressant Positive (Negative); Urine pH Normal (Normal)
[2020-12-22 14:47] LABS: Culture Indicated Urine Cult Not Indicated; RBC Urine 0-1/HPF (0-5/HPF)
[2020-12-22 15:22] LABS: COVID19 - ADMIT (NP swab/PCR) Negative (Negative)
[2020-12-22 16:41] LABS: Lactate (Lactic Acid) 0.8 mmol/L (0.7-2.1)
--- NOTE | 2020-12-22 17:04 | P.HP_ITS ---
History of Present Illness History of Present Illness Date Patient Seen: 12/22/20 Time Patient Seen: 17:04 Chief complaint: unresponsive Narrative: 65-year-old male who was found unresponsive in his vehicle transported to [facility] via EMS and evaluated. Seem to respond to Narcan in route. In the ER he was evaluated and no specific abnormalities were discovered. He is quite somnolent although did a arouse to stimulation. Seems somewhat confused disoriented. Minimally hypoxic with minimally elevated pCO2 on blood gas Patient himself remembers having dinner on Monday evening but that is the last thing he remembers. He is arousable. Denies any headache. Denies any cold or flu symptoms over the last several days preceding his presentation. Has had no respiratory symptoms. 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 Safety & Behavioral: Feels Safe in Current Yes Environment Been Physically Hurt or No Threatened By a Person Tobacco & Substance use: Smoking Status Current some day smoker alcohol intake never Substance Use Type former substance user Meds Home Medications and Allergies Home Medications Medication Instructions Recorded Confirmed Type nitroglycerin 0.4 mg sublingual 0.4 mg SL Q5M PRN 11/13/17 12/07/20 History tablet Disabled Parking #1 each 01/26/18 12/07/20 Rx amitriptyline 25 mg tablet See Rx Instructions .ROUTE 06/19/20 12/07/20 Rx .COMPLEX #90 tablet fluticasone propionate 220 2 puff INHALATION BID #12 gram 06/19/20 12/07/20 Rx mcg/actuation HFA aerosol inhaler (Flovent HFA) ofloxacin 0.3 % ear drops 5 drp EAR-RIGHT BID #5 ml 09/08/20 12/07/20 Rx albuterol sulfate 90 mcg/actuation 2 puff INHALATION QID #18 gram 11/03/2011/11 Rx aerosol inhaler (Ventolin HFA) atorvastatin 40 mg tablet 40 mg PO DAILY #90 tab 11/03/20 12/07/20 Rx clopidogrel 75 mg tablet 75 mg PO DAILY #90 tab 11/03/20 12/07/20 Rx cyclobenzaprine 10 mg tablet 10 mg PO TID PRN #90 tab 11/03/20 12/07/20 Rx diphenhydramine HCl 50 mg capsule 50 mg PO Q6HP PRN #90 cap 11/03/20 12/07/20 Rx docusate sodium 100 mg capsule 100 mg PO BID #180 cap 11/03/20 12/07/20 Rx epinephrine 0.3 mg/0.3 mL 0.3 mg IM .COMPLEX #2 each 11/03/20 12/07/20 Rx injection, auto-injector (EpiPen 2-Kristian) famotidine 40 mg tablet 40 mg PO DAILY #90 tab 11/03/20 12/07/20 Rx levothyroxine 100 mcg tablet 100 mcg PO DAILY #90 tab 11/03/20 12/07/20 Rx lidocaine 5 % topical ointment See Rx Instructions TOPICAL TID 11/03/20 12/07/20 Rx PRN #120 gram mecobalamin (vitamin B12) 1,000 1,000 mcg PO DAILY #90 tab 11/03/20 12/07/20 Rx mcg chewable tablet ondansetron 8 mg disintegrating See Rx Instructions .ROUTE 11/03/20 12/07/20 Rx tablet .COMPLEX #24 tab tiotropium bromide 18 mcg capsule See Rx Instructions .ROUTE 11/03/20 12/07/20 Rx with inhalation device (Spiriva .COMPLEX #30 capsule with HandiHaler) triamcinolone acetonide 0.1 % 1 applic TOP QID #80 gram 11/03/20 12/07/20 Rx topical cream lorazepam 1 mg tablet (Ativan) 1 mg PO Q4HP PRN #60 tab 12/02/20 12/07/20 Rx morphine 30 mg immediate release 30 - 60 mg PO Q4H PRN #180 tab 12/02/20 12/07/20 Rx tablet morphine 30 mg tablet,extended 30 mg PO TID #90 tab 12/02/20 12/07/20 Rx release oxycodone-acetaminophen 7.5 mg-325 1 tab PO Q4HP PRN #180 tab 12/02/20 12/07/20 Rx mg tablet Allergies Allergy/AdvReac Type Severity Reaction Status Date / Time codeine Allergy Mild Verified 12/22/20 14:27 levofloxacin Allergy Mild Verified 12/22/20 14:27 aspirin AdvReac Mild Verified 12/22/20 14:27 Review of Systems Constitutional Constitutional: Denies fatigue, Denies fever(s), Denies frequent falls and Denies headache(s) Eyes Eyes: Denies loss of vision ENT Ears, Nose, Mouth, and Throat: No facial pain, No headache(s), No mouth pain, No nasal congestion and No sinus pressure Cardiovascular Cardiovascular: Denies chest pain, Denies leg edema, Denies lightheadedness, Denies palpitations, Denies dyspnea and Reports dyspnea on exertion (Chronic and unchanged) Respiratory Respiratory: Reports cough (Chronic and unchanged), Denies dyspnea and Reports dyspnea on exertion (Chronic and unchanged) Gastrointestinal Gastrointestinal: Denies abdominal pain, Denies melena and Denies change in stool character Genitourinary Genitourinary: Denies hematuria, Denies oliguria, Denies difficulty urinating, Denies urinary incontinence and Denies urinary urgency Musculoskeletal Musculoskeletal: Denies muscle cramps and Denies radiating pain into limb Neurologic Neurologic: Denies frequent falls, Denies headache(s), Denies loss of vision and Denies paresthesias Endocrine Endocrine: Denies fatigue and Denies palpitations Exam Vital Signs (past 8 hours): - 12/22/20 13:00 12/22/20 13:21 12/22/20 13:29 Temperature 98.6 F Pulse Rate 75 55 L Respiratory Rate 18 22 Blood Pressure 167/80 H 159/100 H Pulse Oximetry 94 86 L 07/13/21 13:30 12/22/20 13:32 12/22/20 13:38 Temperature Pulse Rate 57 L 61 55 L Respiratory Rate 29 H 24 30 H Blood Pressure 196/94 H 184/97 H Pulse Oximetry 90 L 88 L 98 12/22/20 13:40 12/22/20 13:42 12/22/20 13:58 Temperature Pulse Rate 60 53 L Respiratory Rate 22 30 H Blood Pressure 169/123 H 174/72 H Pulse Oximetry 99 97 12/22/20 14:00 12/22/20 14:03 12/22/20 14:06 Temperature Pulse Rate 56 L 53 L Respiratory Rate 28 H Blood Pressure 159/89 H 156/96 H Pulse Oximetry 97 12/22/20 14:10 12/22/20 14:15 12/22/20 14:20 Temperature Pulse Rate 54 L 67 Respiratory Rate 18 17 Blood Pressure 163/73 H 157/82 H 189/84 H Pulse Oximetry 98 95 12/22/20 14:25 12/22/20 14:30 12/22/20 14:35 Temperature Pulse Rate 56 L 55 L 54 L Respiratory Rate 17 46 H 28 H Blood Pressure 161/70 H 134/62 131/68 Pulse Oximetry 95 90 L 88 L 12/22/20 14:40 12/22/20 14:45 12/22/20 14:50 Temperature Pulse Rate 52 L 51 L 51 L Respiratory Rate 31 H 30 H 33 H Blood Pressure 132/68 117/61 119/59 L Pulse Oximetry 99 99 99 12/22/20 14:55 12/22/20 15:00 12/22/20 15:05 Temperature Pulse Rate 51 L 50 L 51 L Respiratory Rate 31 H 29 H 32 H Blood Pressure 109/61 108/61 109/65 Pulse Oximetry 98 98 98 12/22/20 15:10 12/22/20 15:15 12/22/20 15:20 Temperature Pulse Rate 51 L 51 L 51 L Respiratory Rate 27 H 40 H 31 H Blood Pressure 110/61 111/62 112/67 Pulse Oximetry 98 99 98 12/22/20 15:25 12/22/20 15:30 12/22/20 15:35 Temperature Pulse Rate 52 L 50 L 52 L Respiratory Rate 46 H 26 H 30 H Blood Pressure 115/60 117/68 105/64 Pulse Oximetry 98 99 97 12/22/20 15:40 12/22/20 15:45 12/22/20 15:50 Temperature Pulse Rate 50 L 50 L 49 L Respiratory Rate 28 H 34 H 36 H Blood Pressure 123/66 115/62 123/71 Pulse Oximetry 100 99 99 12/22/20 15:55 12/22/20 16:00 12/22/20 16:05 Temperature Pulse Rate 50 L 49 L 59 L Respiratory Rate 18 13 23 Blood Pressure 123/71 118/71 127/80 Pulse Oximetry 99 99 94 12/22/20 16:10 12/22/20 16:15 12/22/20 16:20 Temperature Pulse Rate 64 53 L 50 L Respiratory Rate 21 21 22 Blood Pressure 119/76 155/74 H 153/76 H Pulse Oximetry 91 96 98 12/22/20 16:25 12/22/20 16:30 12/22/20 16:35 Temperature Pulse Rate 50 L 53 L 51 L Respiratory Rate 46 H 22 19 Blood Pressure 155/78 H 143/72 H 132/67 Pulse Oximetry 98 99 98 12/22/20 16:40 12/22/20 16:45 Temperature Pulse Rate 54 L 54 L Respiratory Rate 17 22 Blood Pressure 128/69 119/69 Pulse Oximetry 96 95 Oxygen Delivery Method Room Air Oxygen Flow Rate 2 Narrative Exam Narrative: Much older than stated age appearing male lying on a gurney in the emergency department. He arouses easily from a slumber HEENT-normocephalic atraumatic Neck-no lymphadenopathy Lungs-somewhat decreased breath sounds coarse crackles that clear with coughing, similar to baseline, no wheezes or other crackles Heart-regular rate and rhythm no murmur Abdomen-benign Extremities-no cyanosis clubbing or edema Neuro-alert oriented x2, moves all 4 extremities Objective Labs Result Diagrams: 12/22/20 12:55 12/22/20 12:55 Labs: Laboratory Results - last 24 hr 12/22/20 12/22/20 12/22/20 12:55 12:55 12:55 WBC 3.7 L RBC 4.28 L Hgb 13.2 L Hct 39.9 L MCV 93.3 MCH 30.8 MCHC 33.0 RDW 15.2 H Plt Count 77 L Neut % (Auto) 42.8 L Lymph % (Auto) 36.8 [place] % (Auto) 17.0 H Eos % (Auto) 2.9 Baso % (Auto) 0.5 Neut # (Auto) 1600 Lymph # (Auto) 1400 [place] # (Auto) 600 Eos # (Auto) 100 Baso # (Auto) 0 PT INR APTT ABG pH ABG pCO2 ABG pO2 ABG HCO3 ABG Total CO2 ABG O2 Saturation ABG Base Excess FiO2 Sodium 135 L Potassium 4.6 Chloride 104 Carbon Dioxide 29 BUN 18 Creatinine 0.96 Estimated GFR > 60.0 BUN/Creatinine Ratio 18.8 Glucose 96 Lactate 0.8 Calcium 8.8 Total Bilirubin 0.7 AST 57 ALT 36 Alkaline Phosphatase 102 Ammonia Total Creatine Kinase 106 CK-MB (CK-2) 4.03 H CK-MB (CK-2) Rel Index 3.8 Troponin I < 0.012 Total Protein 6.7 Albumin 3.4 L Globulin 3.3 Albumin/Globulin Ratio 1.0 Procalcitonin 0.07 TSH Urine Color Urine Appearance Urine pH Ur Specific [place] Urine Protein Urine Glucose (UA) Urine Ketones Urine Occult Blood Urine Nitrate Urine Bilirubin Urine Urobilinogen Ur Leukocyte Esterase Urine RBC Urine WBC Urine Bacteria Ur Culture Indicated? Salicylates < 1.0 U Opiates 300ng/mL cut Ur Oxycodone Screen Urine Methadone Screen Acetaminophen < 10 L Ur Barbiturates Screen U Tricyclic Antidepress Ur Phencyclidine Scrn Ur Amphetamines Screen U Methamphetamines Scrn Ur MDMA Scrn (Ecstasy) U Benzodiazepines Scrn Urine Cocaine Screen U Marijuana (THC) Screen Ethyl Alcohol < 10 SARS-CoV-2 (PCR) 12/22/20 12/22/20 12/22/20 12:55 13:40 13:40 WBC RBC Hgb Hct MCV MCH MCHC RDW Plt Count Neut % (Auto) Lymph % (Auto) [place] % (Auto) Eos % (Auto) Baso % (Auto) Neut # (Auto) Lymph # (Auto) [place] # (Auto) Eos # (Auto) Baso # (Auto) PT 12.8 H INR 1.2 APTT 21 L ABG pH ABG pCO2 ABG pO2 ABG HCO3 ABG Total CO2 ABG O2 Saturation ABG Base Excess FiO2 Sodium Potassium Chloride Carbon Dioxide BUN Creatinine Estimated GFR BUN/Creatinine Ratio Glucose Lactate Calcium Total Bilirubin AST ALT Alkaline Phosphatase Ammonia < 9 L Total Creatine Kinase CK-MB (CK-2) CK-MB (CK-2) Rel Index Troponin I Total Protein Albumin Globulin Albumin/Globulin Ratio Procalcitonin TSH 0.723 Urine Color Urine Appearance Urine pH Ur Specific [place] Urine Protein Urine Glucose (UA) Urine Ketones Urine Occult Blood Urine Nitrate Urine Bilirubin Urine Urobilinogen Ur Leukocyte Esterase Urine RBC Urine WBC Urine Bacteria Ur Culture Indicated? Salicylates U Opiates 300ng/mL cut Ur Oxycodone Screen Urine Methadone Screen Acetaminophen Ur Barbiturates Screen U Tricyclic Antidepress Ur Phencyclidine Scrn Ur Amphetamines Screen U Methamphetamines Scrn Ur MDMA Scrn (Ecstasy) U Benzodiazepines Scrn Urine Cocaine Screen U Marijuana (THC) Screen Ethyl Alcohol SARS-CoV-2 (PCR) 12/22/20 12/22/20 12/22/20 13:43 14:20 14:25 WBC RBC Hgb Hct MCV MCH MCHC RDW Plt Count Neut % (Auto) Lymph % (Auto) [place] % (Auto) Eos % (Auto) Baso % (Auto) Neut # (Auto) Lymph # (Auto) [place] # (Auto) Eos # (Auto) Baso # (Auto) PT INR APTT ABG pH 7.34 L ABG pCO2 50.1 H ABG pO2 78 L ABG HCO3 27 H ABG Total CO2 28 ABG O2 Saturation 94 L ABG Base Excess 1.0 FiO2 28 Sodium Potassium Chloride Carbon Dioxide BUN Creatinine Estimated GFR BUN/Creatinine Ratio Glucose Lactate Calcium Total Bilirubin AST ALT Alkaline Phosphatase Ammonia Total Creatine Kinase CK-MB (CK-2) CK-MB (CK-2) Rel Index Troponin I Total Protein Albumin Globulin Albumin/Globulin Ratio Procalcitonin TSH Urine Color Yellow Urine Appearance Clear Urine pH 6.0 Ur Specific [place] <=1.005 Urine Protein Negative Urine Glucose (UA) Negative Urine Ketones Negative Urine Occult Blood 1+ H Urine Nitrate Negative Urine Bilirubin Negative Urine Urobilinogen 0.2 Ur Leukocyte Esterase Negative Urine RBC 0-1/hpf Urine WBC None seen Urine Bacteria None seen Ur Culture Indicated? Cult not indicated Salicylates U Opiates 300ng/mL cut Ur Oxycodone Screen Urine Methadone Screen Acetaminophen Ur Barbiturates Screen U Tricyclic Antidepress Ur Phencyclidine Scrn Ur Amphetamines Screen U Methamphetamines Scrn Ur MDMA Scrn (Ecstasy) U Benzodiazepines Scrn Urine Cocaine Screen U Marijuana (THC) Screen Ethyl Alcohol SARS-CoV-2 (PCR) Negative 12/22/20 14:25 WBC RBC Hgb Hct MCV MCH MCHC RDW Plt Count Neut % (Auto) Lymph % (Auto) [place] % (Auto) Eos % (Auto) Baso % (Auto) Neut # (Auto) Lymph # (Auto) [place] # (Auto) Eos # (Auto) Baso # (Auto) PT INR APTT ABG pH ABG pCO2 ABG pO2 ABG HCO3 ABG Total CO2 ABG O2 Saturation ABG Base Excess FiO2 Sodium Potassium Chloride Carbon Dioxide BUN Creatinine Estimated GFR BUN/Creatinine Ratio Glucose Lactate Calcium Total Bilirubin AST ALT Alkaline Phosphatase Ammonia Total Creatine Kinase CK-MB (CK-2) CK-MB (CK-2) Rel Index Troponin I Total Protein Albumin Globulin Albumin/Globulin Ratio Procalcitonin TSH Urine Color Urine Appearance Urine pH Ur Specific [place] Urine Protein Urine Glucose (UA) Urine Ketones Urine Occult Blood Urine Nitrate Urine Bilirubin Urine Urobilinogen Ur Leukocyte Esterase Urine RBC Urine WBC Urine Bacteria Ur Culture Indicated? Salicylates U Opiates 300ng/mL cut Positive H Ur Oxycodone Screen Negative Urine Methadone Screen Negative Acetaminophen Ur Barbiturates Screen Negative U Tricyclic Antidepress Positive H Ur Phencyclidine Scrn Negative Ur Amphetamines Screen Negative U Methamphetamines Scrn Negative Ur MDMA Scrn (Ecstasy) Negative U Benzodiazepines Scrn Positive H Urine Cocaine Screen Negative U Marijuana (THC) Screen Positive H Ethyl Alcohol SARS-CoV-2 (PCR) Assessment & Plan Assessment & Plan narrative: 1. Altered mental status -all I agree almost certainly due to inappropriate medication management her miss management. He is on large doses of opiate narcotics including long-acting and short-acting morphine as well as oxycodone. He also uses lorazepam. He has not had an event like this previously but we have discussed this possibility over and over again with his combination medications and he has been resistant to reducing medication At this point I think we need continued monitoring to ensure vital signs and respiratory status remained stable (he is minimally bradycardic but that is his baseline). I think his mild hypoxia is likely secondary to his underlying lung disease from his chronic smoking and COPD combined with his overuse of medication. There is no evidence of active infection at this time 2. Pulmonary- patient with chronic COPD on chronic medications. He is minima lly hypoxic at this time. He does use oxygen chronically at nighttime. Recent evaluation in the office failed to show need for oxygen 1 patient is normally awake alert and active. He did not desaturate with activity 1 evaluated recently in the office. However he is now I think somnolent and likely related to his over sedation overmedication and expect his hypoxia to improve as this improves as well 3. Squamous cell carcinoma the head neck - this is been stable over time. He is status post radical neck dissection. Has Oncology in [place]. Not an active issue 4. Vascular disease-patient with noted significant peripheral vascular disease with stents in 1 if not both of his iliac arteries. this is not an active issue he should continue on his anti-platelet therapy 5. Chronic hepatitis C-patient with chronic hepatitis C infection. He has failed previous interferon treatment. Not an active issue 6. Code status- patient has expressed wishes for no code do not resuscitate status at times and also expressed wishes for full resuscitation in the event of a sudden cardiac or respiratory event. At this point is not really able to provide me with any guidance and there are no family members present. Therefore he will continue as a full code in the event of a sudden cardiac or respiratory arrest which at this point does not seem likely given his stability in the ER over several hours 7. VTE prophylaxis- Lovenox is appropriate and has been ordered
[2020-12-22] MEDS: DEXTROSE 5%-0.9% NS 1,000 ML 125 ML IV (18:00)
[2020-12-22] MEDS: BUDESONIDE 0.5 MG/2 ML NEB INH (19:23)
[2020-12-22] MEDS: NICOTINE 7 MG PATCH TOP (21:45)
[2020-12-22] MEDS: DOCUSATE 100 MG CAPSULE PO (21:45)
--- NOTE | 2020-12-22 23:55 | PC.NURSE ---
Admit/Evening Shift Note- Patient arrived to room via stretcher from ER. Patient in and out of sleep, arouses easily by voice. Admit questions done, refused to review medications at this time, physical assessment done, and skin check completed. patient has lunch box type bag with him which contains mabny bottles of medications and a large amount of simpson. Talked with patient about sending medications to the pharmacy and monsy in the safe. Patient refused to have medications sent to pharm, asfter advising patient he could NOT have medications in room with him patient agreed to place in safe. Patient also agreed tpo put simpson in the safe alsobut refused to count and document the simpson. Patient did not want the bag opened up. Patient began asking about the morphgine doses he has missed. Patient told morphine is not ordered at this time per MD. Patient able to get his bottle of morphine out and take one of his pills before I was able to get the bag and medication away from him and into a bag for the safe. called exhibitions curator MD about Nicotine patch. patient requesting to go ouytside to smoke, when told of hospital protocol patient stated fine Ill smoke in the bathroom. Nicotine 7mg patch placed to left upper arm. Patients cigarettes placed to ocked draw. SCD's placed on as ordered. Bed alarm activated. Oriented patient to bed and bed cobntrols, room, ights, ophone,menu, and call grimes/tv remote. Patientwill need to be reoriented. [facility]. call grimes and phone within reach. will continue to monitor.,
[2020-12-23] VITALS: BP 122/70; PULSE 54; RESP 14; TEMP 36.2; O2SAT 97
[2020-12-23] MEDS: DEXTROSE 5%-0.9% NS 1,000 ML 125 ML IV (02:05)
[2020-12-23 05:00] VITALS: BP 127/68; PULSE 49; RESP 12; TEMP 36.4; O2SAT 98
[2020-12-23] MEDS: LEVOTHYROXINE 100 MCG TABLET PO (06:36)
[2020-12-23 07:25] VITALS: PULSE 54; RESP 18; O2SAT 96
[2020-12-23] MEDS: BUDESONIDE 0.5 MG/2 ML NEB INH (07:25)
[2020-12-23 08:31] VITALS: BP 117/74; PULSE 59; RESP 12; TEMP 36.1; O2SAT 98
[2020-12-23] MEDS: ATORVASTATIN 20 MG TABLET 40 MG PO (08:57)
[2020-12-23] MEDS: CLOPIDOGREL 75 MG TABLET PO (08:57)
[2020-12-23] MEDS: DOCUSATE 100 MG CAPSULE PO (08:57)
[2020-12-23] MEDS: FAMOTIDINE 20 MG TABLET 40 MG PO (08:57)
--- NOTE | 2020-12-23 09:17 | P.DS_ITS ---
History of Present Illness History of Present Illness Date Patient Seen: 12/23/20 Time Patient Seen: 09:18 Chief complaint: unresponsive Narrative: 65-year-old male who was found unresponsive in his vehicle transported to [facility] via EMS and evaluated. Seem to respond to Narcan in route. In the ER he was evaluated and no specific abnormalities were discovered. He is quite somnolent although did a arouse to stimulation. Seems somewhat confused disoriented. Minimally hypoxic with minimally elevated pCO2 on blood gas Patient himself remembers having dinner on Monday evening but that is the last thing he remembers. He is arousable. Denies any headache. Denies any cold or flu symptoms over the last several days preceding his presentation. Has had no respiratory symptoms. Is pretty adamant that he is not messed up with his medications Discharge Providers Provider Date of admission: 12/22/20 16:15 Discharge Date: 12/23/20 Primary care physician: Shalom Tijerina MD Discharge provider: Shalom Tijerina MD Summary Hospital Course Discharge Diagnosis: 1. Altered mental status 2. Inadvertent narcotic overdose 3. Chronic pain syndrome 4. Squamous cell carcinoma of the oropharynx 5. Paroxysmal atrial fibrillation 6. Peripheral vascular disease 7. COPD Hospital Course: As above, patient was found unresponsive in his vehicle. Evaluation in the ER failed to reveal any specific etiology. Given this it is likely patient had inadvertent overdose or interaction between his large doses opiate narcotics as well as his benzodiazepines and other sedating medications. He was treated with IV fluids and time. With this he slowly woke up and on the morning of discharge is back to his normal self. He was not yet really displaying any opiate withdrawal symptoms. His urine tox screen did show presence of opiates and benzodiazepines as well as the tricyclics as been prescribed in addition to THC. Patient seem to be back to normal. We had a chayo discussion regarding his use of his multiple medications. He is adamant that he did not intentionally or even inadvertently alter his medications. We discussed that the interaction between the benzodiazepines in the opiate narcotics is particularly dangerous and perhaps that was the interaction the cause this event. He was willing to discontinue the lorazepam altogether he only uses that sparingly anyway and compared to his other medications that would appear to be true based on prescription refill history. I believe he also should have a reduction in his overall opiate dose and work to do that over the next several months as an outpatient I think we also need to try to work to reduce overall the number of sedating medications he takes and will continue work to do that over the next several months as an outpatient Patient is being seen monthly in the outpatient setting by myself and has an appointment already scheduled coming up to see me on like . He will keep that and I will plan to begin slow reduction in his overall narcotic use that visit Exam Vital Signs (past 8 hours): - 12/23/20 05:00 12/23/20 07:25 12/23/20 08:31 Temperature 97.6 F 96.9 F L Pulse Rate 49 L 54 L 59 L Respiratory Rate 12 18 12 Blood Pressure 127/68 117/74 Pulse Oximetry 98 96 98 Oxygen Delivery Method Nasal Cannula Oxygen Flow Rate 1 Narrative Exam Narrative: Middle-aged male who appears much older than stated age who is awake alert x3 no obvious distress sitting up in his hospital bed HEENT-unremarkable, normocephalic atraumatic Neck-no lymphadenopathy no bruits Lungs-clear anteriorly and posteriorly no wheezes no crackles diminished breath sounds, basically at baseline Heart-regular rate and rhythm, no murmur, rub, or gallop. normal S1-S2 Abdomen-positive bowel tones, soft, nontender, nondistended, no hepatosplenomegaly, no masses palpable Neuro-normal to screening exam, gait not tested Extremities-no cyanosis clubbing or edema Objective Labs Result Diagrams: 12/22/20 12:55 12/22/20 12:55 Labs: Laboratory Results - last 24 hr 12/22/20 12/22/20 12/22/20 12:55 12:55 12:55 WBC 3.7 L RBC 4.28 L Hgb 13.2 L Hct 39.9 L MCV 93.3 MCH 30.8 MCHC 33.0 RDW 15.2 H Plt Count 77 L Neut % (Auto) 42.8 L Lymph % (Auto) 36.8 [place] % (Auto) 17.0 H Eos % (Auto) 2.9 Baso % (Auto) 0.5 Neut # (Auto) 1600 Lymph # (Auto) 1400 [place] # (Auto) 600 Eos # (Auto) 100 Baso # (Auto) 0 PT INR APTT ABG pH ABG pCO2 ABG pO2 ABG HCO3 ABG Total CO2 ABG O2 Saturation ABG Base Excess FiO2 Sodium 135 L Potassium 4.6 Chloride 104 Carbon Dioxide 29 BUN 18 Creatinine 0.96 Estimated GFR > 60.0 BUN/Creatinine Ratio 18.8 Glucose 96 Lactate 0.8 Calcium 8.8 Total Bilirubin 0.7 AST 57 ALT 36 Alkaline Phosphatase 102 Ammonia Total Creatine Kinase 106 CK-MB (CK-2) 4.03 H CK-MB (CK-2) Rel Index 3.8 Troponin I < 0.012 Total Protein 6.7 Albumin 3.4 L Globulin 3.3 Albumin/Globulin Ratio 1.0 Procalcitonin 0.07 TSH Urine Color Urine Appearance Urine pH Ur Specific [place] Urine Protein Urine Glucose (UA) Urine Ketones Urine Occult Blood Urine Nitrate Urine Bilirubin Urine Urobilinogen Ur Leukocyte Esterase Urine RBC Urine WBC Urine Bacteria Ur Culture Indicated? Salicylates < 1.0 U Opiates 300ng/mL cut Ur Oxycodone Screen Urine Methadone Screen Acetaminophen < 10 L Ur Barbiturates Screen U Tricyclic Antidepress Ur Phencyclidine Scrn Ur Amphetamines Screen U Methamphetamines Scrn Ur MDMA Scrn (Ecstasy) U Benzodiazepines Scrn Urine Cocaine Screen U Marijuana (THC) Screen Ethyl Alcohol < 10 SARS-CoV-2 (PCR) 12/22/20 12/22/20 12/22/20 12:55 13:40 13:40 WBC RBC Hgb Hct MCV MCH MCHC RDW Plt Count Neut % (Auto) Lymph % (Auto) [place] % (Auto) Eos % (Auto) Baso % (Auto) Neut # (Auto) Lymph # (Auto) [place] # (Auto) Eos # (Auto) Baso # (Auto) PT 12.8 H INR 1.2 APTT 21 L ABG pH ABG pCO2 ABG pO2 ABG HCO3 ABG Total CO2 ABG O2 Saturation ABG Base Excess FiO2 Sodium Potassium Chloride Carbon Dioxide BUN Creatinine Estimated GFR BUN/Creatinine Ratio Glucose Lactate Calcium Total Bilirubin AST ALT Alkaline Phosphatase Ammonia < 9 L Total Creatine Kinase CK-MB (CK-2) CK-MB (CK-2) Rel Index Troponin I Total Protein Albumin Globulin Albumin/Globulin Ratio Procalcitonin TSH 0.723 Urine Color Urine Appearance Urine pH Ur Specific [place] Urine Protein Urine Glucose (UA) Urine Ketones Urine Occult Blood Urine Nitrate Urine Bilirubin Urine Urobilinogen Ur Leukocyte Esterase Urine RBC Urine WBC Urine Bacteria Ur Culture Indicated? Salicylates U Opiates 300ng/mL cut Ur Oxycodone Screen Urine Methadone Screen Acetaminophen Ur Barbiturates Screen U Tricyclic Antidepress Ur Phencyclidine Scrn Ur Amphetamines Screen U Methamphetamines Scrn Ur MDMA Scrn (Ecstasy) U Benzodiazepines Scrn Urine Cocaine Screen U Marijuana (THC) Screen Ethyl Alcohol SARS-CoV-2 (PCR) 12/22/20 12/22/20 12/22/20 13:43 14:20 14:25 WBC RBC Hgb Hct MCV MCH MCHC RDW Plt Count Neut % (Auto) Lymph % (Auto) [place] % (Auto) Eos % (Auto) Baso % (Auto) Neut # (Auto) Lymph # (Auto) [place] # (Auto) Eos # (Auto) Baso # (Auto) PT INR APTT ABG pH 7.34 L ABG pCO2 50.1 H ABG pO2 78 L ABG HCO3 27 H ABG Total CO2 28 ABG O2 Saturation 94 L ABG Base Excess 1.0 FiO2 28 Sodium Potassium Chloride Carbon Dioxide BUN Creatinine Estimated GFR BUN/Creatinine Ratio Glucose Lactate Calcium Total Bilirubin AST ALT Alkaline Phosphatase Ammonia Total Creatine Kinase CK-MB (CK-2) CK-MB (CK-2) Rel Index Troponin I Total Protein Albumin Globulin Albumin/Globulin Ratio Procalcitonin TSH Urine Color Yellow Urine Appearance Clear Urine pH 6.0 Ur Specific [place] <=1.005 Urine Protein Negative Urine Glucose (UA) Negative Urine Ketones Negative Urine Occult Blood 1+ H Urine Nitrate Negative Urine Bilirubin Negative Urine Urobilinogen 0.2 Ur Leukocyte Esterase Negative Urine RBC 0-1/hpf Urine WBC None seen Urine Bacteria None seen Ur Culture Indicated? Cult not indicated Salicylates U Opiates 300ng/mL cut Ur Oxycodone Screen Urine Methadone Screen Acetaminophen Ur Barbiturates Screen U Tricyclic Antidepress Ur Phencyclidine Scrn Ur Amphetamines Screen U Methamphetamines Scrn Ur MDMA Scrn (Ecstasy) U Benzodiazepines Scrn Urine Cocaine Screen U Marijuana (THC) Screen Ethyl Alcohol SARS-CoV-2 (PCR) Negative 12/22/20 14:25 WBC RBC Hgb Hct MCV MCH MCHC RDW Plt Count Neut % (Auto) Lymph % (Auto) [place] % (Auto) Eos % (Auto) Baso % (Auto) Neut # (Auto) Lymph # (Auto) [place] # (Auto) Eos # (Auto) Baso # (Auto) PT INR APTT ABG pH ABG pCO2 ABG pO2 ABG HCO3 ABG Total CO2 ABG O2 Saturation ABG Base Excess FiO2 Sodium Potassium Chloride Carbon Dioxide BUN Creatinine Estimated GFR BUN/Creatinine Ratio Glucose Lactate Calcium Total Bilirubin AST ALT Alkaline Phosphatase Ammonia Total Creatine Kinase CK-MB (CK-2) CK-MB (CK-2) Rel Index Troponin I Total Protein Albumin Globulin Albumin/Globulin Ratio Procalcitonin TSH Urine Color Urine Appearance Urine pH Ur Specific [place] Urine Protein Urine Glucose (UA) Urine Ketones Urine Occult Blood Urine Nitrate Urine Bilirubin Urine Urobilinogen Ur Leukocyte Esterase Urine RBC Urine WBC Urine Bacteria Ur Culture Indicated? Salicylates U Opiates 300ng/mL cut Positive H Ur Oxycodone Screen Negative Urine Methadone Screen Negative Acetaminophen Ur Barbiturates Screen Negative U Tricyclic Antidepress Positive H Ur Phencyclidine Scrn Negative Ur Amphetamines Screen Negative U Methamphetamines Scrn Negative Ur MDMA Scrn (Ecstasy) Negative U Benzodiazepines Scrn Positive H Urine Cocaine Screen Negative U Marijuana (THC) Screen Positive H Ethyl Alcohol SARS-CoV-2 (PCR) [facility] Medical History Anemia (02/09/11) Aortoiliac obstruction Cervical spine disease Chronic hepatitis C virus infection (02/09/11) Chronic obstructive pulmonary disease (02/09/11) Dorsalgia (08/14/03) History of adenomatous polyp of colon (02/09/11) Neck pain (02/09/11) Paroxysmal atrial fibrillation (~12/2019) Recurrent major depressive disorder, in full remission (02/09/11) 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) Uncomplicated opioid dependence Vascular claudication Surgical History History of knee replacement S/P vascular bypass (~12/2017) Status post tonsillectomy and adenoidectomy Family History Father Family hx of lung cancer Social History marital status: unmarried,single number of children: 3 household members: none lives independently: Yes caregiver/support person: Yes (Sometimes.) housing: other (Trailer) pets and animals: Yes education level: other (GED) occupational status: disabled current occupational exposures/hazards: No 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: Other special omero needs: No leisure activities: fishing, reading and other (Build boxes, [employer] lawns.) Smoking Status: Current some day smoker Tobacco: How many years used: 45 Smokeless tobacco user: other (Cigarettes) quit status: quit date established (11/12/17) second hand exposure: Yes alcohol intake: never substance use type: does not use Discharge Plan Discharge Plan Patient Disposition: Home Discharge orders & Medications Prescriptions: Continued (DME) Disabled Parking Qty: 1 RF: 0 ofloxacin 0.3 % drops 5 drp EAR-RIGHT BID Qty: 5 RF: 0 cyclobenzaprine 10 mg tablet 10 mg PO TID PRN (Reason: muscle spasm) Qty: 90 RF: 0 lidocaine 5 % ointment See Rx Instructions Topical TID PRN (Reason: pain) Qty: 120 RF: 1 mecobalamin (vitamin B12) 1,000 mcg tablet,chewable 1,000 mcg PO DAILY Qty: 90 RF: 3 clopidogrel 75 mg tablet 75 mg PO DAILY Qty: 90 RF: 3 famotidine 40 mg tablet 40 mg PO DAILY Qty: 90 RF: 3 Ventolin HFA 90 mcg/actuation HFA aerosol inhaler 2 puff INHALATION QID Qty: 18 RF: 3 atorvastatin 40 mg tablet 40 mg PO DAILY Qty: 90 RF: 3 docusate sodium 100 mg capsule 100 mg PO BID Qty: 180 RF: 3 levothyroxine 100 mcg tablet 100 mcg PO DAILY Qty: 90 RF: 3 ondansetron 8 mg tablet,disintegrating See Rx Instructions .ROUTE .COMPLEX Qty: 24 RF: 3 Spiriva with HandiHaler 18 mcg capsule, w/inhalation device See Rx Instructions .ROUTE .COMPLEX Qty: 30 RF: 6 triamcinolone acetonide 0.1 % cream 1 applic TOP QID Qty: 80 RF: 2 diphenhydramine HCl 50 mg capsule 50 mg PO Q6HP PRN (Reason: allergic reaction) Qty: 90 RF: 3 epinephrine [EpiPen 2-Kristian] 0.3 mg/0.3 mL auto-injector 0.3 mg IM .COMPLEX Qty: 2 RF: 11 nitroglycerin 0.4 mg tablet, sublingual 0.4 mg SL Q5M PRNRF: 0 amitriptyline 25 mg tablet See Rx Instructions .ROUTE .COMPLEX Qty: 90 RF: 3 Flovent HFA 220 mcg/actuation HFA aerosol inhaler 2 puff INHALATION BID Qty: 12 RF: 3 morphine 30 mg tablet 30 - 60 mg PO Q4H PRN (Reason: pain) Qty: 180 RF: 0 morphine 30 mg tablet extended release 30 mg PO TID Qty: 90 RF: 0 oxycodone-acetaminophen 7.5-325 mg tablet 1 tab PO Q4HP PRN (Reason: pain) Qty: 180 RF: 0 Discontinued lorazepam [Ativan] 1 mg tablet 1 mg PO Q4HP PRN (Reason: anxiety) Qty: 60 RF: 0 Follow up/Referrals: Shalom Tijerina MD [Primary Care Provider] - (keep 12/29/20 appt) Discharge Health Status Multidrug resistant organism: No MDRO Diet/Activity/Treatments Diet: Diet as Tolerated Discharge Data Primary Care Provider: Shalom Tijerina Attending Provider: Shalom Tijerina Quality VTE Deep Vein Thrombosis/Pulmonary Embolism Present on Admission: No
[2020-12-23] MEDS: MORPHINE ER 30 MG TABLET PO (09:49)
--- NOTE | 2020-12-23 10:29 | CM.DANOTE ---
Patient is a 65 year old male who was admitted on 12/22/20 for Unresponsiveness. Pt has [facility] and [facility] for insurance and his PCP is Dr. Shalom Tijerina. EMR was reviewed. Per MD, pt with hx of chronic pain medication use and depression and has been stable with his cancer and connected with Oncology Clinic. Pt found unresponsive in his vehicle in his driveway and transported via EMS. Pt with remote hx of polysubstance abuse. Per MD, pt medically stable to d/c and no concerns that this was an intentional overdose and likely a combination of his multiple medications for pain, Lorazepam, and THC. SW met bedside with pt and explained role and difficult to get direct and specific information from pt but he confirms that he still lives in [facility] in an on friend's property. Pt has his own vehicle and drives and is mostly independent with ADLs. Pt currently denies any further services in place and denies any needs other than attempting to get a ride home. Pt denies any purposeful/intentional drug abuse or misuse and denies any needs for CD resources and preference is to d/c home today. SW was attempting to call Medicaid to determine if pt has transportation benefits but then pt confirmed that he found a friend to provide transport home today. Plan: Patient to d/c back home to in [facility] via friend POV and no current SW needs identified or ordered. NASREEN Posey Discharge Planning/Care Management CM Discharge Assessment Start: 12/23/20 10:27 Freq: Status: Active Protocol: Document 12/23/20 10:27 BF (Rec: 12/23/20 10:29 BF [id number]) Discharge Planning Assessment Assigned Sports Management Professor NASREEN Vega DPOA/Assigned Designee Name none Advance Directives? No Advance Directives on File No History Provided By Patient,Medical Record Has Patient been admitted in last 30 No days? Prior Living Arrangements RV Household Members none Type of transporation used prior to Drives own vehicle admit Independent with ADL's Yes: mostly Is patient alert and oriented? Yes Caregiver for Another No DME Already Rented / Owned FWW / Walker Barriers to Discharge No Discharge Plan Home Transportation Arrangement Pt's vehicle is not here but he found a friend to give him a ride home Referrals Initiated None needed Whiteboard Updated in Patient Room with Yes name and ext. # of Sports Management Professor Review Status In Process Please Provide Date Initial DC 12/23/20 Assessment Was Performed Next Review Type Continued Stay Review
--- NOTE | 2020-12-23 10:56 | PC.NURSE ---
Pt reports severe cancer pain of 9/10 with 7/10 being tolerable and baseline; PO Morphine administered; Tele Sinus Abram; O2 1 L=98%, CO2 35; LS clear; SBA to bathroom; d/c instructions included f/u care, medication change, with focus on discontinuation of Ativan; all items from safe returned in patient; patient escorted via wheelchair with personal belongings in hand to private vehicle
== END 2020-12-23 11:02 | disposition home or self-care (01) ==
LOC: ED 16:14 → AC 16:15
PROVIDERS: Admitting Provider Internal Medicine; Emergency Provider Emergency Medicine; PCP Internal Medicine; Referring Provider Emergency Medicine; Visit Provider Internal Medicine
DX: T40.2X4A Poisoning by other opioids, undetermined, initial encounter (principal); R41.82 Altered mental status, unspecified; F11.20 Opioid dependence, uncomplicated; G89.4 Chronic pain syndrome; J44.9 Chronic obstructive pulmonary disease, unspecified; I48.0 Paroxysmal atrial fibrillation; I73.9 Peripheral vascular disease, unspecified; F17.210 Nicotine dependence, cigarettes, uncomplicated; Z85.89 Personal history of malignant neoplasm of other organs and systems; Z20.822 Contact with and (suspected) exposure to COVID-19
CPT/HCPCS: 36415; 36600; 70450; 71045; 80053; 80305; 80320; 80329; 81001; 82140; 82550; 82553; 82805; 83605; 84145; 84443; 84484; 85025; 85610; 85730; 87040; 87635; 93005; 93010; 94640; 94762; 96360; 96361; 99217; 99219; 99285; C9803; G0378; A9270; G0480

== ENCOUNTER → 2021-10-12 12:31 | Outpatient (CLI) | payer OTHER, MEDICAID, SELFPAY ==
[2020-12-22 17:18] VITALS: BMI 17.9
[2021-10-12 13:00] LABS: Add Manual Diff / Slide Review NO; Basophils Absolute Auto 0 /uL (0-100); Basophils Percent Auto 1.1 % (0-2); Eosinophils Absolute Auto 200 /uL (0-450); Eosinophils Percent Auto 3.5 % (2-4); Hematocrit 44.5 % (41-53); Hemoglobin 15.1 g/dL (13.5-17.5); Lymphocytes Absolute Auto 1200 /uL (1100-4500); Lymphocytes Percent Auto 26.6 % (25-40); Mean Corpuscular Hemoglobin 31.1 PG (26-34); Mean Corpuscular Volume 91.6 fL (80-100); Monocytes Absolute Auto 600 /uL (0-900); Monocytes Percent Auto 13.5 % (3-14); Neutrophils Absolute Auto 2500 /uL (1500-7000); Neutrophils Percent Auto 55.3 % (50-75); Platelet Count 109 X10^3/uL (150-400); Red Blood Cell Count 4.86 X10^6/uL (4.5-5.9); Red Cell Distribution Width 14.2 % (11.6-14.8); White Blood Cell Count 4.5 X10^3/uL (4.5-11.0)
[2021-10-12 13:17] LABS: Alanine Aminotransferase 37 IU/L (<50); Albumin 3.9 g/dL (3.5-5.0); Albumin Globulin Ratio 1.1 (1.0-2.8); Alkaline Phosphatase 102 U/L (38-126); Aspartate Aminotransferase 60 IU/L (17-59); BUN Creatinine Ratio 14.2 (6-22); Bilirubin Total 0.6 mg/dL (0.2-1.3); Blood Urea Nitrogen 15 mg/dL (9-20); Calcium 8.9 mg/dL (8.4-10.2); Carbon Dioxide 28 mmol/L (22-32); Chloride 106 mmol/L (98-107); Estimated Glomerular Filt Rate > 60 mL/min (>60); Globulin 3.5 g/dL (1.7-4.1); Glucose 85 mg/dL (80-110); HEMOLYSIS 15 (0-50); Potassium 4.3 mmol/L (3.4-5.1); Sodium 141 mmol/L (137-145); Total Protein 7.4 g/dL (6.3-8.2)
[2021-10-12 13:46] LABS: Thyroid Stimulating Hormone 1.93 uIU/mL (0.47-4.68)
== END ==
PROVIDERS: PCP Internal Medicine; Referring Provider Internal Medicine; Visit Provider Internal Medicine
DX: B18.2 Chronic viral hepatitis C (principal); D64.9 Anemia, unspecified; E03.9 Hypothyroidism, unspecified; I48.0 Paroxysmal atrial fibrillation
CPT/HCPCS: 36415; 80053; 84439; 84443; 85025

== ENCOUNTER → 2021-12-16 16:48 | Outpatient (CLI) | payer OTHER, MEDICAID, SELFPAY ==
[2020-12-22 17:18] VITALS: BMI 17.9
[2021-12-16 18:57] LABS: Alanine Aminotransferase 31 IU/L (<50); Albumin 3.3 g/dL (3.5-5.0); Alkaline Phosphatase 78 U/L (38-126); Aspartate Aminotransferase 53 IU/L (17-59); BUN Creatinine Ratio 20.6 (6-22); Bilirubin Total 0.7 mg/dL (0.2-1.3); Blood Urea Nitrogen 22 mg/dL (9-20); Calcium 8.3 mg/dL (8.4-10.2); Carbon Dioxide 27 mmol/L (22-32); Chloride 104 mmol/L (98-107); Creatine Kinase 110 U/L (55-170); Estimated Glomerular Filt Rate > 60 mL/min (>60); Globulin 3.2 g/dL (1.7-4.1); Glucose 87 mg/dL (80-110); HEMOLYSIS < 15 (0-50); Potassium 3.8 mmol/L (3.4-5.1); Sodium 139 mmol/L (137-145); Total Protein 6.5 g/dL (6.3-8.2)
[2021-12-17 07:45] LABS: Free T4, Direct Thyroxine 2.58 ng/dL (0.78-2.19)
[2021-12-17 07:59] LABS: Thyroid Stimulating Hormone 1.52 uIU/mL (0.47-4.68)
== END ==
PROVIDERS: PCP Internal Medicine; Referring Provider Internal Medicine; Visit Provider Internal Medicine
DX: E05.90 Thyrotoxicosis, unspecified without thyrotoxic crisis or storm (principal); M79.10 Myalgia, unspecified site; R25.2 Cramp and spasm
CPT/HCPCS: 36415; 80053; 82550; 84439; 84443

== ENCOUNTER → 2023-03-09 12:20 | Outpatient (CLI) | payer MEDICARE, MEDICAID, SELFPAY ==
[2020-12-22 17:18] VITALS: BMI 17.9
--- NOTE | 2023-03-09 12:22 | DI.RAD.S_ITS ---
PROCEDURE: XR CHEST 2V INDICATIONS: copd TECHNIQUE: 2 views of the chest were acquired. COMPARISON: [facility], , XR CHEST 1V, 12/22/2020, 13:50. FINDINGS: Surgical changes and devices: Surgical clips are noted projecting over right apex. Lungs and pleura: There is hyperinflation. No focal infiltrate. No pleural effusions or pneumothorax. Mediastinum: Mediastinal contours are normal. Heart size is normal. Bones and chest wall: No suspicious bony abnormalities. Soft tissues appear unremarkable. IMPRESSION: No acute cardiopulmonary pathology. Mild hyperinflation. Dictated by: Beau Rawls M.D. on 03/09/2023 at 15:40 Approved by: Beau Rawls M.D. on 03/09/2023 at 15:40
== END ==
LOC: RAD 12:22
PROVIDERS: PCP Internal Medicine; Referring Provider Internal Medicine; Visit Provider Internal Medicine
DX: J44.9 Chronic obstructive pulmonary disease, unspecified (principal)
CPT/HCPCS: 71046

== ENCOUNTER → 2023-03-31 15:02 | Outpatient (CLI) | payer MEDICARE, MEDICAID, SELFPAY ==
[2020-12-22 17:18] VITALS: BMI 17.9
== END ==
PROVIDERS: PCP Internal Medicine; Referring Provider Internal Medicine Critical Care Medicine; Visit Provider Internal Medicine Critical Care Medicine
DX: J44.9 Chronic obstructive pulmonary disease, unspecified (principal); F17.210 Nicotine dependence, cigarettes, uncomplicated
CPT/HCPCS: 94060; 94726; 94729